=== PATIENT | female | born 1940 ===

== ENCOUNTER 2022-06-14 14:38 | Inpatient (IN) | payer OTHER ==
[2022-06-17 10:08] VITALS: BMI 32.8
[2022-06-17] MEDS ORDERED: FEXOFENADINE 180 MG TAB PO PRN (11:01)
[2022-06-17] MEDS ORDERED: MONTELUKAST 10 MG TAB PO PRN (11:04)
[2022-06-17] MEDS ORDERED: TRAMADOL 37.5mg/APAP 325mg PER TAB PO PRN (11:12)
[2022-06-17] MEDS: CODEINE 30MG/APAP 300MG TAB PO PRN ×2 (13:52→20:22)
[2022-06-17] MEDS: LIDOCAINE 4% PATCH TOP SCH (13:53)
[2022-06-17] MEDS: glipiZIDE 5 MG TAB PO SCH (16:40)
--- NOTE | 2022-06-17 17:07 | RAD REPORT ---
EXAM DESCRIPTION: RAD - Elbow Right 2 View - 06/17/2022 4:29 pm CLINICAL HISTORY: Elbow pain FINDINGS: Limited two view series obtained. Splint immobilizes the elbow. Humeral supracondylar fracture is present. Mild displacement of fracture fragments. Presumably it is subacute. No gross dislocation
[2022-06-17] MEDS ORDERED: DOCUSATE NA/SENNA CONC 1 TAB PO SCH (20:00)
[2022-06-17] MEDS: ATORVASTATIN 40 MG TAB PO SCH (20:22)
[2022-06-17] MEDS: GABAPENTIN 300 MG CAP PO SCH (20:22)
[2022-06-17] MEDS: NYSTATIN PWDR 100000 UNIT/GM TOP SCH (20:22)
[2022-06-17] MEDS: APIXABAN 2.5 MG TABLET PO SCH (20:22)
[2022-06-17] MEDS ORDERED: D50W 25 GM/50 ML SYRINGE IV PRN (20:31)
[2022-06-17] MEDS ORDERED: GLUCAGON 1 MG/VIAL IM PRN (20:31)
[2022-06-17] MEDS ORDERED: D10W 125 ML IV PRN (20:36)
[2022-06-17] MEDS: INSULIN -REGULAR HUMAN 50 UNIT/0.5 ML ML SQ SCH (21:00)
--- NOTE | 2022-06-17 23:48 | HP ---
Date of Admission: 06/17/2022 Time Of Service: 1:15 p.m. Chief Complaint: "My arm and back hurts." History Of Present Illness: Ms. Hernandez is an 82-year-old right-handed patient with multiple medical problems including hypertension, osteoarthritis, diabetes mellitus, diabetic peripheral neur opathy, chronic kidney disease, and hypothyroidism who comes in with the right elbow fracture, back p ain, and toxic metabolic encephalopathy. She fell on 06/05/2022 while at home and was taken to [facility] where she was found to have a right elbow fracture by x-ray. She was treated me dically and discharged home. However, on 06/10/2022, she was found in the recliner confused at home and was brought back to the hospital. Workup showed hypoglycemia and hyponatremia and chest x-ray sh owed cardiomegaly with bilateral effusions. Her carbon dioxide was 25. Sugars elevated to 172, crea tinine elevated to 1.92, hemoglobin slightly low at 10.1. She was diagnosed with toxic metabolic enc ephalopathy. She had hydrocortisone on board for her pain and possibly was a contributing factor. H owever, she did not resolve the encephalopathy and became significantly weak over several days. It s hould be noted that although there is a report of Orthopedic consultation when the nurse received the report, it was reported that the patient should be seen by Orthopedic Service while at inpatient [facility]. In any event, the patient was put in a splint and then sent over after she was evaluated by PT a nd OT and determined that she requires significant help for basic activities such as activities of da rubi living, transferring, ambulating, and performing cognitive functioning. She is now admitted to [facility] inpatient rehabilitation unit for physical, occupational, and speech therapy. She also will requi re aggressive management of her multiple medical problems, and again orthopedic followup and evaluati on. Past Medical History: As noted above. Past Surgical History: Hysterectomy, tonsillectomy, and appendectomy. Allergies: NO KNOWN DRUG ALLERGIES. X-ray/imaging: X-ray of the elbow 06/05/2022 showed suspected acute supracondylar humeral fracture. X-ray of the right knee on 06/05 showed no acute fracture. There is chondrocalcinosis. Portable est x-ray on 06/10/2022 shows cardiomegaly with mild central congestion along with bibasilar subsegme ntal atelectasis and small effusions. Head CT on 06/10/2022 shows moderate atrophy of deep white mat ter due to chronic small vessel ischemic disease. Otherwise, no acute abnormalities. Medications: Tylenol 3 every 6 hours as needed; allopurinol 100 mg daily; Eliquis 2.5 mg twice daily ; aspirin 81 mg daily; Lipitor 40 mg at bedtime; Rocaltrol 0.25 mcg on Wednesday, Wednesday, Wednesday; vit cifuentes D 1000 units daily; Sun 180 mg twice daily; Lasix 40 mg daily; gabapentin 300 mg twice daily ; Glucotrol 10 mg twice daily; Synthroid 0.1 mg daily; lidocaine patch now applied 1 to the back and 1 to right arm daily; Prinivil 30 mg daily; Singulair 10 mg at bedtime; Mycostatin powder apply topic ally twice daily; Senokot-S 2 at bedtime; sodium chloride tablet 1 g daily; and Ultram 50 mg every 6 hours as needed. Family History: Noncontributory. Laboratory Studies: Her blood sugars ranged from 189 to 221. White blood cell count 7.2, hemoglobin 10.4, hematocrit 31.2, and platelets 281. Sodium 133, potassium 4.7, BUN 63, creatinine 1.92, calci um 8.2, and albumin 2.6. Social History: The patient lives alone on her daughter's property and at baseline did not have cogn itive difficulties. Review of Systems: The patient reports some pain in the back and between shoulder blades and the pain in the right elbow where she has a fracture. Her arm is in a sling. Physical Examination: HEENT: She is otherwise atraumatic, normocephalic. Sclerae anicteric. Oropharynx pink and moist. Neck: Supple. Chest: Decreased breath sounds. Abdomen: Soft. Extremities: No significant edema, cyanosis, or clubbing. Neurologic: The right arm is in a sling and cannot fully assess strength. On the left side, no weak ness there and bilaterally in the lower extremities, no significant focal weakness. Stocking-glove l oss to light touch and temperature in the extremities. Reflexes are symmetric in the lower extremiti es. Current Functional Status: Today she ambulated 5 feet with moderate assistance using a quad cane. S he did have poor truncal stability. She did participate in gait training with parallel bars with emp hasis on step lengths. Sit to stand done with moderate assistance. Qemmrh-os-gpe transfers with min imum assistance. She was evaluated by Speech Therapy. She actually scored a 10 on the BIMS and 15 o n the SLUMS. She did have areas of deficits including short-term memory, working memory, organizatio nal thinking, sustained attention, visual spatial concepts, and 4 paragraphs recall. With her occupa tional therapy, she did attempt to self propel the wheelchair and she covered 10 feet, but then had s ignificant pain. Rehabilitation And Medical Assessment And Plan: Her rehabilitation impairment group category is 03, brain dysfunction, nontraumatic. Rehabilitation impairment group code is 02.1, nontraumatic. Her et iologic diagnosis is toxic metabolic encephalopathy. Active comorbids are anemia, cardiomegaly, teaching music lessons kristi kidney disease, encephalopathy, constipation, decreased mobility, decrease in physical functionin g, diabetic neuropathy, diabetes mellitus, lower extremity edema, dyslipidemia, hypertension, hyponat remia, hypothyroidism, and hypokalemia. Plan: 1.She will have physical, occupational, and speech therapy 3.5 hours, 5 of 7 days. 2.For constipation, Senokot-S 2 at night. 3.For pain, Ultram 50 mg every 6 hours as needed. 4.For hypertension, Prinivil 30 mg daily. 5.Fluid management will be done by Lasix 40 mg daily. 6.Gabapentin 300 mg daily for neuropathic pain and pain related to her right elbow fracture. 7.For diabetes mellitus, Glucotrol 10 mg twice daily and blood sugars will be checked a.c. and at be dtime. 8.For hypothyroidism, Synthroid 0.1 mg daily. 9.She will continue aspirin 81 mg daily and Eliquis 2.5 mg daily for stroke and DVT risk reduction. 10.Lipitor 40 mg at bedtime for dyslipidemia. Impact Of Comorbids: 1.She does have the encephalopathy, which is toxic metabolic and we will of course have Speech Thera py working with her. Electrolytes will be followed appropriately and if need be, a CT scan of the he ad and EEG will be ordered. 2.Her right elbow is in a sling and Orthopedic evaluation was reportedly not done. The Orthopedic S edwardo was consulted, Dr. Chandra. He will see the patient tomorrow and make a determination if surgery is required, although he says he does not perform those surgeries and if need be, the patient will b e transferred out of rehab for that. However, for now, the patient will be kept in a sling as she do es her rehabilitation. Rehab Specific Plan: As noted, she will have physical, occupational, and speech therapy 3.5 hours, 5 of 7 days and the goal will be to improve her ability to transfer to where she was previously, which is independently from bed, to chair, to shower, toilet, and to ambulate 250 feet with modified indep endence, up and down 10 steps with modified independence, and also perform cognitive functioning with independence. She has a good understanding of the admission and discharge process to the inpatient rehabilitation u [facility]. She has a potential to make good improvement in physical, occupational, and speech therapy disc iplines with significant work, which she is committed to doing. In addition, the Orthopedic Service is consulted. She will have Pulmonary Service, Cardiovascular Service, and Nutrition Services along with Wound Care as needed. Given the complex medical condition and risk of further complications, re habilitation cannot be safely or effectively provided at a lower level facility such as [facility]. Barriers To Discharge: She has the right elbow fracture and has electrolyte abnormalities and some e ncephalopathy, but again those are being aggressively treated while she is in inpatient rehabilitatio n. Estimated Length Of Stay: About 12 days. Disposition: Home. Prognosis: Despite multiple conditions, is good. Rehabilitation Goals: 1.Become independent with upper and lower body dressing, transferring, toileting, and showering. 2.Ambulate 250 feet independently. 3.Up and down 10 steps independently. 4.Perform cognitive functioning independently. 5.Have all of her medical needs addressed adequately by fdc and physician visits on a da rubi basis. I acknowledge I personally performed a full physical examination on patient Loren Hernandez, no later than 24 hours after admission to the inpatient rehabilitation unit and determined that she is able to rodriguez erate the above course of treatment at an intensive level for a reasonable period of time. Rosa domingo individualized plan of care for her will be completed by hospital day 4 based on the preadmission s creen, admission history and physical, and therapy evaluations. ROMINA/SYLVIE Voice ID: [id number]
[2022-06-18 04:33] LABS: Absolute Lymphocytes (CBC) 2.1 K/uL (0.7-4.9); Hematocrit 30.5 % (36.0-45.0); Lymphocytes % 27.3 % (15.3-44.8); MCV 91.8 fL (80-100); MPV 7.8 fL (7.6-11.3); RBC Red Blood Cell Count 3.32 M/uL (3.86-4.86)
[2022-06-18 04:53] LABS: Albumin 2.7 g/dL (3.4-5.0); Magnesium 2.3 mg/dL (1.6-2.4); Potassium 4.8 mEq/L (3.5-5.1); Prealbumin 12.6 mg/dL (20-40)
[2022-06-18] MEDS: LEVOTHYROXINE SOD 0.1 MG TAB PO SCH (05:26)
[2022-06-18] MEDS: glipiZIDE 5 MG TAB PO SCH ×2 (07:15→17:06)
[2022-06-18] MEDS: INSULIN -REGULAR HUMAN 50 UNIT/0.5 ML ML SQ SCH ×4 (07:15→20:02)
[2022-06-18] MEDS ORDERED: lisinopriL 10 MG TAB PO SCH ×2 (08:00→10:08)
[2022-06-18] MEDS: LIDOCAINE 4% PATCH TOP SCH (08:32)
[2022-06-18] MEDS: APIXABAN 2.5 MG TABLET PO SCH ×2 (08:33→19:34)
[2022-06-18] MEDS: ASPIRIN EC 81 MG TAB PO SCH (08:33)
[2022-06-18] MEDS: VITAMIN D 1000 UNIT TAB PO SCH (08:33)
[2022-06-18] MEDS: GABAPENTIN 300 MG CAP PO SCH ×2 (08:35→19:34)
[2022-06-18] MEDS: TRAMADOL HCL 50 MG TAB PO PRN (08:35)
[2022-06-18] MEDS: allopurinoL 100 MG TAB PO SCH (08:35)
[2022-06-18] MEDS: SODIUM CHLORIDE 1 GM TAB PO SCH (08:35)
[2022-06-18] MEDS: FUROSEMIDE 40 MG TABLET PO SCH (08:36)
[2022-06-18] MEDS: NYSTATIN PWDR 100000 UNIT/GM TOP SCH ×2 (08:37→19:34)
[2022-06-18 10:29] LABS: Specific Gravity 1.015 (1.005-1.030); Urine Bilirubin ND (Negative); Urine Blood Negative (Negative); Urine Clarity Clear (Clear); Urine Color Yellow (Yellow); Urine Glucose Negative (Negative); Urine Protein Negative (Negative); Urine Urobilinogen 0.2 mg/dL (0.2-1.0); Urine pH 5.5 (5.0-7.0)
[2022-06-18 10:38] LABS: Transitional Epithelial <5 /HPF (None Seen); Urine Bacteria <20 /HPF (<20); Urine RBC <5 /HPF (None Seen)
[2022-06-18] MEDS: lisinopriL 5 MG TAB PO SCH (19:34)
[2022-06-18] MEDS: ATORVASTATIN 40 MG TAB PO SCH (19:34)
--- NOTE | 2022-06-18 20:06 | PN ---
Date of Progress Note: 06/18/2022 Time Of Service: 1 p.m. Subjective: Ms. Hernandez reports the pain in her back is much better. She still has some pain in the r ight elbow where there is a fracture and that is medicated by pain medications. Otherwise, on subjec tive, no generalized other problems. There was diffuse myalgias, but no rash. No active psychiatric issues. No gastrointestinal issues. Review of Systems: No fevers or chills. Again pain in the right arm that is held in a sling from the fracture of the el bow. Otherwise, no genitourinary or gastrointestinal complaints. She does have chronic back pain, a nd no psychiatric complaints. Physical Examination: Vital Signs: Blood pressure 118/56, pulse of 70, respiratory rate 16, temperature is 97.6. Oxygen s aturation 95%. General: Ms. Hernandez is sitting in a chair with speech pathologist in front. She is in no significant distress. She is working well with Speech Pathology. Right arm is in a sling. She is not exerting much force there because of the pain at the right elbow. She is moving legs equally, although there is some diffuse weakness in the lower extremities. Laboratory Studies: White blood cell count 7.8, hemoglobin 10.3, platelets 292. Chemistry: Sodium 135, potassium 4.8, chloride 106, carbon dioxide 27, BUN 46, creatinine 1.93. Glucose ranged from 81 to 177. Prealbumin 12.3, albumin 2.7. Urinalysis is essentially unremarkable except 2+ esterase. X-ray Imaging: The x-ray of her right elbow, 2 views, did show a humeral supracondyle fracture with mild displacement of fracture fragments, presumed to be subacute as the splint immobilizing the elbow . Consultation: The patient was seen by Dr. Steve Chandra in the Orthopedic Service. He did say that t hat fragment does appear to require surgery. However, he does not perform that surgery at this [facility] and actually no other hospital. He did recommend that she go to [place] to have that surgery don e. This actually was discussed with the patient's daughter and they will make a decision regarding g oing to [place] to have surgery on the elbow. If that is decided, patient will be discharged from in patient rehab to have surgery. Otherwise, patient will continue with inpatient rehab and after disch arge, will then seek surgical care in [place]. Medications: Tylenol 3 one every 6 hours as needed. Allopurinol 100 mg daily. Eliquis 2.5 mg twice daily. Aspirin 81 mg daily. Lipitor 40 mg at bedtime. Rocaltrol Wednesday, Wednesday, Wed day. Vitamin D 1000 units daily. Sun 180 mg twice daily. Lasix 40 mg daily. Gabapentin 300 mg twice daily. Glucotrol 5 mg twice daily. Synthroid 0.1 mg daily. Prinivil 15 mg twice daily. Sin gulair 10 mg at bedtime. Senokot S 2 at bedtime. Sodium chloride 1 g daily. Ultram 50 mg every 6 h ours as needed. Current Functional Status: Today she did ambulate 12 feet, 30 feet, 33 feet and 25 feet with moderat e assistance using a quad cane. She did perform stand pivot transfers with minimum to moderate debo tance, transfers from wheelchair to straight back chair also done with moderate assistance. With Spe ech Pathology, therapist did provide teaching on the use of internal memory strategies for recall of short term and patient did use verbal rehearsal and visualization to recall 1 of 3 pictures with cued recall and 2 of 3 pictures with recognition recall. Progress Towards Rehabilitation Goals: Ms. Hernandez is beginning to make some progress towards her reha bilitation goals. She was just admitted to the unit now and this is day 2 and beginning to ambulate, working fairly well with Speech Pathology to improve her comprehension, following instructions and c leared some of her encephalopathy. Assessment And Plan: Ms. Hernandez is an 82-year-old patient admitted to the inpatient rehabilitation un it with toxic metabolic encephalopathy. She has a fall with a right elbow fracture as detailed above . She has chronic kidney disease, constipation, diabetes with diabetic neuropathy, hypothyroidism, m alnutrition, dyslipidemia, hypertension. Plan: 1.Continue with physical, occupational, and speech therapy 3.5 hours, 5 of 7 days. 2.Continue with Prinivil for hypertension, gabapentin for neuropathic pain, Lasix for volume managem ent, Ultram and Tylenol 3 for pain. Continue Glucotrol for diabetes mellitus. Continue Synthroid fo r hypothyroidism, allopurinol for gout. Comorbids That Are Continuing To Impact The Rehabilitation Process: She does have a fracture in the right elbow with the right arm in a sling. Orthopedic Surgery suggests surgery is likely to be requi red, but that is not done at this hospital. The patient and her daughter are determining whether or not they will go to [place] to have surgery and if that is the case, she will be discharged to [facility]. If not, continue with inpatient rehab and then pursue surgery after discharge. ROIMNA/SYLVIE Voice ID: [id number] Report ID: [id number]
[2022-06-19] MEDS: LEVOTHYROXINE SOD 0.1 MG TAB PO SCH (06:13)
[2022-06-19] MEDS: INSULIN -REGULAR HUMAN 50 UNIT/0.5 ML ML SQ SCH ×4 (06:40→20:00)
[2022-06-19] MEDS: TRAMADOL HCL 50 MG TAB PO PRN (06:56)
[2022-06-19] MEDS: lisinopriL 5 MG TAB PO SCH (08:00)
[2022-06-19] MEDS: FUROSEMIDE 40 MG TABLET PO SCH (08:00)
[2022-06-19] MEDS ORDERED: CALCITROL 0.25 MCG CAP PO SCH (08:00)
[2022-06-19] MEDS: LIDOCAINE 4% PATCH TOP SCH (08:06)
[2022-06-19] MEDS: APIXABAN 2.5 MG TABLET PO SCH ×2 (08:07→19:49)
[2022-06-19] MEDS: CALCITROL 0.25 MCG CAP PO SCH (08:07)
[2022-06-19] MEDS: VITAMIN D 1000 UNIT TAB PO SCH (08:07)
[2022-06-19] MEDS: NYSTATIN PWDR 100000 UNIT/GM TOP SCH ×2 (08:07→19:49)
[2022-06-19] MEDS: GABAPENTIN 300 MG CAP PO SCH ×2 (08:07→19:49)
[2022-06-19] MEDS: ASPIRIN EC 81 MG TAB PO SCH (08:07)
[2022-06-19] MEDS: SODIUM CHLORIDE 1 GM TAB PO SCH (08:07)
[2022-06-19] MEDS: glipiZIDE 5 MG TAB PO SCH ×2 (08:08→17:11)
[2022-06-19] MEDS: allopurinoL 100 MG TAB PO SCH (08:08)
--- NOTE | 2022-06-19 08:17 | P.RH.PN ---
Estimated Length of Stay: 14 Expected Discharge Date: 06/30/22 Discharge Disposition Plan: Home Family Support: Yes Shelter Goal: Mobility, Transfers, Self Care Vital Signs: Last Vital Signs Temp 97.3 F 06/19/22 06:55 Pulse 59 06/19/22 06:55 Resp 18 06/19/22 06:56 BP 102/42 L 06/19/22 06:55 Pulse Ox 97 06/19/22 06:56 Laboratory: Laboratory Last Values WBC 7.80 thou/uL (4.3-10.9) 06/18/22 04:10 RBC 3.32 M/uL (3.86-4.86) L 06/18/22 04:10 Hgb 10.3 g/dL (12.0-15.0) L 06/18/22 04:10 Hct 30.5 % (36.0-45.0) L 06/18/22 04:10 MCV 91.8 fL (80-100) 06/18/22 04:10 MCH 31.0 pg (27.0-35.0) 06/18/22 04:10 MCHC 33.8 g/dL (32.0-36.0) 06/18/22 04:10 RDW 13.9 % (12.1-15.2) 06/18/22 04:10 Plt Count 292 thou/uL (152-406) 06/18/22 04:10 MPV 7.8 fL (7.6-11.3) 06/18/22 04:10 Neutrophils % 56.9 % (41.7-73.7) 06/18/22 04:10 Lymphocytes % 27.3 % (15.3-44.8) 06/18/22 04:10 Monocytes % 12.6 % (3.3-12.3) H 06/18/22 04:10 Eosinophils % 2.9 % (0-4.4) 06/18/22 04:10 Basophils % 0.3 % (0-1.3) 06/18/22 04:10 Absolute Neutrophils 4.4 K/uL (1.8-8.0) 06/18/22 04:10 Absolute Lymphocytes 2.1 K/uL (0.7-4.9) 06/18/22 04:10 Absolute Monocytes 1.0 K/uL (0.1-1.3) 06/18/22 04:10 Absolute Eosinophils 0.2 K/uL (0-0.5) 06/18/22 04:10 Absolute Basophils 0.0 K/uL (0-0.5) 06/18/22 04:10 Sodium 135 mEq/L (136-145) L 06/18/22 04:10 Potassium 4.8 mEq/L (3.5-5.1) 06/18/22 04:10 Chloride 106 mEq/L (98-107) 06/18/22 04:10 Carbon Dioxide 27 mEq/L (21-32) 06/18/22 04:10 Anion Gap 6.8 mEq/L (5.0-15.0) 06/18/22 04:10 BUN 46 mg/dL (7-18) H 06/18/22 04:10 Creatinine 1.93 mg/dL (0.55-1.02) H 06/18/22 04:10 Est GFR (CKD-EPI) 25 ml/min (=/>90) L 06/18/22 04:10 Glucose 70 mg/dL (74-106) L 06/18/22 04:10 POC Glucose 96 mg/dL (65-120) 06/19/22 06:38 Calcium 9.6 mg/dL (8.5-10.1) 06/18/22 04:10 Magnesium 2.3 mg/dL (1.6-2.4) 06/18/22 04:10 Albumin 2.7 g/dL (3.4-5.0) L 06/18/22 04:10 Prealbumin 12.6 mg/dL (20-40) L 06/18/22 04:10 Urine Color Yellow (Yellow) 06/18/22 09:25 Urine Clarity Clear (Clear) 06/18/22 09:25 Urine pH 5.5 (5.0-7.0) 06/18/22 09:25 Ur Specific [place] 1.015 (1.005-1.030) 06/18/22 09:25 Glucose (UA)(Auto) Negative (Negative) 06/18/22 09:25 Urine Ketones Negative (Negative) 06/18/22 09:25 Urine Blood Negative (Negative) 06/18/22 09:25 Urine Nitrite Negative (Negative) 06/18/22 09:25 Urine Bilirubin ND 06/18/22 09:25 Urine Urobilinogen 0.2 mg/dL (0.2-1.0) 06/18/22 09:25 Ur Leukocyte Esterase 2+ (Negative) H 06/18/22 09:25 Urine RBC <5 /HPF (None Seen) 06/18/22 09:25 Urine WBC 5-10 /HPF (<5) 06/18/22 09:25 Ur Squamous Epith Cells 5-10 /HPF (None Seen) 06/18/22 09:25 Ur Transition Epith Cell <5 /HPF (None Seen) 06/18/22 09:25 Urine Bacteria <20 /HPF (<20) 06/18/22 09:25 Urine Culture Reflexed Not needed 06/18/22 09:25 Urine Total Protein Negative (Negative) 06/18/22 09:25 Weight: 179 lb 3.2 oz Wound Present: No Physician Update: Glucerna due to low prealbumin. Moderate pain in the right elbow fracture. She may require surgery for the arm. Will speak with Dr. Chandra. She is at mod assistance with a quad cane. Mod assistance with cognitive functioning. Doing better with ADLs but still mod to max assistance overall. Summary: Patient's care plan and termite inspector goals have been reviewed and revised as necessary. Please see the Rehabilitation Signature page for all necessary signatures.
[2022-06-19] MEDS ORDERED: NA CHLORIDE 0.9% 1,000 ML IV SCH (12:00)
[2022-06-19] MEDS: ATORVASTATIN 40 MG TAB PO SCH (19:49)
[2022-06-19] MEDS: lisinopriL 10 MG TAB PO SCH ×2 (19:49→20:00)
[2022-06-19] MEDS: GLUCERNA SHAKE 237 ML CAN PO SCH (19:50)
[2022-06-20] MEDS: LEVOTHYROXINE SOD 0.1 MG TAB PO SCH (06:38)
[2022-06-20] MEDS: lisinopriL 10 MG TAB PO SCH ×2 (07:11→19:46)
[2022-06-20] MEDS: FUROSEMIDE 20 MG TABLET PO SCH (07:12)
[2022-06-20] MEDS: INSULIN -REGULAR HUMAN 50 UNIT/0.5 ML ML SQ SCH ×4 (07:30→20:04)
[2022-06-20] MEDS: glipiZIDE 5 MG TAB PO SCH ×2 (07:30→16:15)
[2022-06-20] MEDS: LIDOCAINE 4% PATCH TOP SCH (07:49)
[2022-06-20] MEDS: SODIUM CHLORIDE 1 GM TAB PO SCH (07:50)
[2022-06-20] MEDS: ACETAMINOPHEN 500 MG TAB PO PRN (07:50)
[2022-06-20] MEDS: ASPIRIN EC 81 MG TAB PO SCH (07:50)
[2022-06-20] MEDS: GABAPENTIN 300 MG CAP PO SCH ×2 (07:50→19:45)
[2022-06-20] MEDS: VITAMIN D 1000 UNIT TAB PO SCH (07:50)
[2022-06-20] MEDS: allopurinoL 100 MG TAB PO SCH (07:50)
[2022-06-20] MEDS: APIXABAN 2.5 MG TABLET PO SCH ×2 (07:51→19:45)
[2022-06-20] MEDS: NYSTATIN PWDR 100000 UNIT/GM TOP SCH ×2 (11:04→19:46)
[2022-06-20] MEDS: GLUCERNA SHAKE 237 ML CAN PO SCH ×2 (11:04→19:46)
[2022-06-20] MEDS: TRAMADOL HCL 50 MG TAB PO PRN (13:30)
--- NOTE | 2022-06-20 14:22 | CON ---
Date of Consultation: 06/18/2022 Reason For Consultation: Right elbow pain. History Of Present Illness: Ms. Hernandez is an 82-year-old female who was admitted to the rehab service after sustaining a fall with difficulty mobilizing. She has history of a fall approximately 2 weeks ago and sustained an injury to her right elbow. She was seen at another hospital and placed in a po sterior splint. X-rays demonstrated a displaced supracondylar distal humerus fracture of the right u pper extremity. She had not had orthopedic followup until this time. The patient reports pain at th e right elbow. She has been in a sling and nonweightbearing. She was also noted to have a prior adm ission diagnosis of toxic metabolic encephalopathy. She denies any other musculoskeletal complaints at this time. Review of Systems: As above, otherwise negative. Past Medical History: Diabetes, hypertension, chronic kidney disease, hypothyroidism. Past Surgical History: Includes hysterectomy, tonsillectomy, appendectomy. Medications: Per medication reconciliation. Allergies: NO KNOWN DRUG ALLERGIES. Family History: Reviewed and noncontributory. Social History: The patient lives alone with her daughter. Physical Examination: General: No apparent distress. HEENT: Normocephalic, atraumatic. Neck: Supple. Cardiovascular: Brisk cap refill to all digits. Chest: Nonlabored breathing. Abdomen: Nondistended. Psychiatric: Responds to exam. Musculoskeletal: Right upper extremity, the patient is in a long posterior splint to the right upper extremity. She has positive firing of EPL FPL and intrinsics. Sensation grossly intact to light touch in the radial, median, ulnar nerve distributions. Diagnostic Studies: X-rays of the right elbow demonstrate a transverse supracondylar distal humerus fracture with displacement and some extension at the fracture site. Some mild translation. Assessment And Plan: Ms. Hernandez is an 82-year-old female with a right displaced distal humerus fractu re. Discussed with the patient at length the diagnosis as well as treatment plan. Given the displac ed nature of the fracture, I did recommend operative treatment. Given her multiple medical comorbidi ties, I did express to the patient there may be some elevated perioperative risk and she expressed un derstanding. After discussion with her, she will discuss further with her daughter to discuss if she would like to proceed with operative treatment. I discussed with the patient that if we proceed wit h nonoperative treatment that there would be a high risk for nonunion or stiffness. She expressed un derstanding. She will remain nonweightbearing at this time. She will be discussed further with her family and informed nursing with her decision whether to proceed with operative or nonoperative treat ments. I discussed with the patient that if she did proceed with surgical treatment that it would re quire higher level of care this procedure and admitting team would help the patient for fu rther followup. AJ/SYLVIE Voice ID: [id number] Report ID: [id number]
[2022-06-20] MEDS: ATORVASTATIN 40 MG TAB PO SCH (19:46)
[2022-06-20] MEDS: CODEINE 30MG/APAP 300MG TAB PO PRN (21:36)
[2022-06-21] MEDS: CODEINE 30MG/APAP 300MG TAB PO PRN (05:30)
[2022-06-21] MEDS: LEVOTHYROXINE SOD 0.1 MG TAB PO SCH (06:24)
[2022-06-21 06:27] LABS: Absolute Lymphocytes (CBC) 1.5 K/uL (0.7-4.9); Hematocrit 28.6 % (36.0-45.0); MCV 92.5 fL (80-100); MPV 8.4 fL (7.6-11.3)
[2022-06-21 06:46] LABS: Potassium 5.1 mEq/L (3.5-5.1)
[2022-06-21] MEDS: INSULIN -REGULAR HUMAN 50 UNIT/0.5 ML ML SQ SCH ×4 (07:30→20:02)
[2022-06-21] MEDS: glipiZIDE 5 MG TAB PO SCH ×2 (07:41→15:51)
[2022-06-21] MEDS: LIDOCAINE 4% PATCH TOP SCH (07:56)
[2022-06-21] MEDS: VITAMIN D 1000 UNIT TAB PO SCH (07:59)
[2022-06-21] MEDS: ASPIRIN EC 81 MG TAB PO SCH (07:59)
[2022-06-21] MEDS: allopurinoL 100 MG TAB PO SCH (07:59)
[2022-06-21] MEDS: APIXABAN 2.5 MG TABLET PO SCH ×2 (07:59→19:32)
[2022-06-21] MEDS: SODIUM CHLORIDE 1 GM TAB PO SCH (07:59)
[2022-06-21] MEDS: lisinopriL 10 MG TAB PO SCH ×2 (08:00→19:34)
[2022-06-21] MEDS: NYSTATIN PWDR 100000 UNIT/GM TOP SCH ×2 (08:00→19:32)
[2022-06-21] MEDS: GABAPENTIN 300 MG CAP PO SCH ×2 (08:00→19:32)
[2022-06-21] MEDS: FUROSEMIDE 20 MG TABLET PO SCH (08:00)
[2022-06-21] MEDS: GLUCERNA SHAKE 237 ML CAN PO SCH ×2 (08:00→19:32)
[2022-06-21] MEDS: FERROUS SULFATE 325 MG TAB PO SCH (09:15)
[2022-06-21] MEDS: FE SULF/FA/VIT B COMP & C TAB PO SCH (09:16)
[2022-06-21] MEDS: TRAMADOL HCL 50 MG TAB PO PRN (15:48)
[2022-06-21] MEDS: ATORVASTATIN 40 MG TAB PO SCH (19:32)
[2022-06-21] MEDS: CIPROFLOXACIN HCL 500 MG TAB PO SCH (19:33)
[2022-06-21] MEDS: DOCUSATE NA/SENNA CONC 1 TAB PO PRN (20:17)
[2022-06-22] MEDS: LEVOTHYROXINE SOD 0.1 MG TAB PO SCH (06:22)
[2022-06-22] MEDS: glipiZIDE 5 MG TAB PO SCH ×2 (07:16→16:30)
[2022-06-22] MEDS: FUROSEMIDE 20 MG TABLET PO SCH (07:16)
[2022-06-22] MEDS: APIXABAN 2.5 MG TABLET PO SCH ×2 (07:17→20:29)
[2022-06-22] MEDS: FE SULF/FA/VIT B COMP & C TAB PO SCH (07:17)
[2022-06-22] MEDS: VITAMIN D 1000 UNIT TAB PO SCH (07:17)
[2022-06-22] MEDS: CIPROFLOXACIN HCL 500 MG TAB PO SCH ×2 (07:17→20:29)
[2022-06-22] MEDS: FERROUS SULFATE 325 MG TAB PO SCH (07:17)
[2022-06-22] MEDS: GABAPENTIN 300 MG CAP PO SCH (07:17)
[2022-06-22] MEDS: ASPIRIN EC 81 MG TAB PO SCH (07:17)
[2022-06-22] MEDS: allopurinoL 100 MG TAB PO SCH (07:17)
[2022-06-22] MEDS: CALCITROL 0.25 MCG CAP PO SCH (07:18)
[2022-06-22] MEDS: SODIUM CHLORIDE 1 GM TAB PO SCH (07:18)
[2022-06-22] MEDS: GLUCERNA SHAKE 237 ML CAN PO SCH ×2 (07:19→20:30)
[2022-06-22] MEDS: INSULIN -REGULAR HUMAN 50 UNIT/0.5 ML ML SQ SCH ×4 (07:30→20:31)
[2022-06-22] MEDS: TRAMADOL HCL 50 MG TAB PO PRN ×3 (07:36→20:29)
[2022-06-22] MEDS: lisinopriL 10 MG TAB PO SCH ×2 (08:00→20:30)
--- NOTE | 2022-06-22 08:55 | P.PN ---
Subjective Date of Service: 06/19/22 Chief Complaint: right elbow pain Subjective: Working w/ PT reports continued pain with right elbow Physical Examination - Vital Signs Temperature: 97.3 F Blood Pressure: 109/56 Pulse: 62 Respirations: 17 Pulse Ox (%): 92 - Physical Exam General: Alert, In no apparent distress Musculoskeletal: Other (RUE: long posterior splint in place; +EPL/FPL/intrinsics; sensation grossly intact in radial/median/ulnar nerve distributation) - Studies Microbiology Data (last 24 hrs): 06/18/22 09:25 Clean Catch Urine [place] Count - Final BETWEEN 10,000 & 100,000 CFU/ML 06/18/22 09:25 Clean Catch Urine - Final Escherichia Coli Assessment And Plan - Plan Loren is an 82-year-old female with a right supracondylar distal humerus fracture -I discussed the patient at length her diagnosis as well as treatment plan. We discussed both operative and nonoperative treatment. We discussed risks with operative and nonoperative treatment including nonunion and continued pain. Patient is discussed with her daughter would like to proceed with operative treatment. I recommend follow-up in the next couple of days with an orthopaedic elbow/trauma specialist as the patient is already 2 weeks out from her initial injury. She may follow-up in my clinic as needed.
[2022-06-22] MEDS: LIDOCAINE 4% PATCH TOP SCH (10:58)
[2022-06-22] MEDS: NYSTATIN PWDR 100000 UNIT/GM TOP SCH ×2 (10:59→20:30)
[2022-06-22] MEDS ORDERED: POLYETHYL GLY 3350 17 GM/DOSE PO PRN (11:01)
[2022-06-22] MEDS: GABAPENTIN 400 MG CAP PO SCH (20:29)
[2022-06-22] MEDS: DOCUSATE NA/SENNA CONC 1 TAB PO PRN (20:29)
[2022-06-22] MEDS: ATORVASTATIN 40 MG TAB PO SCH (20:29)
--- NOTE | 2022-06-22 20:29 | PN ---
Date of Service: 06/22/22 Time of Service: 1:00 PM [facility] Progress Note Visit Subjective: Ms. Hernandez is resting comfortably in her room. She does have the right arm in a sling where there is a displaced fracture in supracondylar humerus in the right upper extremity. She was seen by Dr. Chandra on the Orthopedic Service. His assessment and plan was that since the fracture was displaced, he recommended operative treatment and the patient and her daughter decided that they will seek that in [place] and actually tomorrow, they have a day pass to go to [place] to be evaluated by one of the orthopedic surgeons selected by Dr. Chandra and the patient and her daughter together. Otherwise, her back is improving in terms of pain with pain patch. Review of Systems: No fevers or chills. There are some myalgias and arthralgias as noted. No rash. No headache. No weight change. No psychiatric complaints. No active genitourinary or gastrointestinal issues. Physical Examination: Vital Signs: Blood pressure 109/56, pulse 62, respiratory rate 16, temperature 97.3, and oxygen saturation 94%. General: Ms. Hernandez is in chair, in between sessions. Her daughter is in the room. HEENT: She is normocephalic, atraumatic. Sclerae anicteric. Oropharynx pink and moist. Extremities: Right arm is in a sling where there is the fracture as noted. Lower extremities show mild edema, but no significant abnormalities otherwise. Neurologic: She does have diffuse weakness in upper and lower extremities and slight slowness in response, but is improving very well. Laboratory Studies: Yesterday, white blood cell count 6.1, hemoglobin 9.5, and platelets 264. Blood glucose ranged from 80 to 123. X-ray/imaging: No new x-ray or imaging. Medications: Her medications have been reviewed and remained unchanged. Current Functional Status: Currently, she was able to ambulate 30 feet 4 times with contact guard assist using a left quad cane and she did fatigue quickly. She did nnsjys-iu-rwv transfer with minimum assistance and qwy-uj-lezwj transfer done with contact guard assistance. With speech therapy, she demonstrates sustained attention to a structured task for 3 minutes, but needed moderate cuing. 3 pieces of unrelated information were presented for recall. She recalled 0 of 3 at first attempt after 3 minutes; after 2 minutes, she recalled 1 of 3 and recalled 2 of 3 after an additional 3 minutes, but with cuing. Progress Towards Rehabilitation Goals: Ms. Hernandez is making slow progress towards her goals of becoming independent with upper and lower body dressing, transferring, toileting, and performing activities of daily living and ambulating with independence. She also is working to improve her cognitive functioning with independence. Assessment: Ms. Hernandez is an 82-year-old patient in the rehabilitation unit with toxic metabolic encephalopathy. She has a displaced fracture in the distal humerus that requires surgical intervention per Dr. Chandra on the Orthopedic Service. She has multiple comorbid conditions including diabetes, diabetic neuropathy, hypothyroidism, malnutrition, dyslipidemia, hypertension, chronic kidney disease, and constipation. Plan: 1. Continue with physical, occupational, and speech therapy 3.5 hours, 5 of 7 days. 2. She will continue with her medications as listed including gabapentin, Prinivil, Lasix, Ultram, Tylenol, Glucotrol, Synthroid, and allopurinol and these are for her comorbid conditions. 3. She will go to [place] in the morning to be evaluated for right elbow surgery. Comorbids That Continue To Impact The Rehabilitation Process: The most impactful comorbid is the fracture of the right elbow, which is in a sling and she has significant pain there. She is going to [place] in the morning for further evaluation and possible surgery. She was managed with multiple medications for her pain in the right elbow. ROMINA/SYLVIE Voice ID: [id number] Report ID: [id number] BAKARI
[2022-06-22] MEDS: MELATONIN 3 MG TABLET PO PRN (20:30)
[2022-06-23] MEDS: LEVOTHYROXINE SOD 0.1 MG TAB PO SCH (06:20)
[2022-06-23] MEDS: glipiZIDE 5 MG TAB PO SCH ×2 (07:25→16:30)
[2022-06-23] MEDS: FUROSEMIDE 20 MG TABLET PO SCH (07:26)
[2022-06-23] MEDS: LIDOCAINE 4% PATCH TOP SCH (07:26)
[2022-06-23] MEDS: ASPIRIN EC 81 MG TAB PO SCH (07:27)
[2022-06-23] MEDS: CIPROFLOXACIN HCL 500 MG TAB PO SCH ×2 (07:27→19:47)
[2022-06-23] MEDS: SODIUM CHLORIDE 1 GM TAB PO SCH (07:27)
[2022-06-23] MEDS: GABAPENTIN 400 MG CAP PO SCH ×2 (07:27→19:46)
[2022-06-23] MEDS: VITAMIN D 1000 UNIT TAB PO SCH (07:27)
[2022-06-23] MEDS: FE SULF/FA/VIT B COMP & C TAB PO SCH (07:27)
[2022-06-23] MEDS: NYSTATIN PWDR 100000 UNIT/GM TOP SCH ×2 (07:27→19:54)
[2022-06-23] MEDS: allopurinoL 100 MG TAB PO SCH (07:27)
[2022-06-23] MEDS: FERROUS SULFATE 325 MG TAB PO SCH (07:27)
[2022-06-23] MEDS: GLUCERNA SHAKE 237 ML CAN PO SCH ×2 (07:28→19:52)
[2022-06-23] MEDS: APIXABAN 2.5 MG TABLET PO SCH ×2 (07:28→19:46)
[2022-06-23] MEDS: INSULIN -REGULAR HUMAN 50 UNIT/0.5 ML ML SQ SCH ×4 (07:30→21:00)
[2022-06-23] MEDS: lisinopriL 10 MG TAB PO SCH ×2 (08:00→19:47)
[2022-06-23] MEDS: TRAMADOL HCL 50 MG TAB PO PRN ×4 (08:20→22:45)
[2022-06-23] MEDS: MELATONIN 3 MG TABLET PO PRN (19:46)
[2022-06-23] MEDS: ATORVASTATIN 40 MG TAB PO SCH (19:46)
--- NOTE | 2022-06-24 00:13 | PN ---
Date of Progress Note: 06/23/2022 The patient is actually out of the hospital visiting the physicians in [place] for her right elbow fr acture and physically was not evaluated today. It should be noted that her therapy could not be comp leted in terms of 3.5 hours today, because the patient did not return from early visit to [facility] later today. However, it should be noted that the patient was actually having additional therapy throughout the week with the knowledge that she would have today's visit with surgeons in [place]. S he did accumulate a total of 900 total minutes during the week and that did complete requirements for physical, occupational, and speech therapy. ROMINA/SYLVIE Voice ID: [id number] Report ID: [id number]
[2022-06-24] MEDS: LEVOTHYROXINE SOD 0.1 MG TAB PO SCH (06:28)
[2022-06-24] MEDS: INSULIN -REGULAR HUMAN 50 UNIT/0.5 ML ML SQ SCH ×4 (07:30→20:00)
[2022-06-24] MEDS: lisinopriL 10 MG TAB PO SCH ×2 (08:00→19:38)
[2022-06-24] MEDS: FUROSEMIDE 20 MG TABLET PO SCH (08:00)
[2022-06-24] MEDS: glipiZIDE 5 MG TAB PO SCH ×2 (08:23→17:18)
[2022-06-24] MEDS: TRAMADOL HCL 50 MG TAB PO PRN ×3 (08:24→19:41)
[2022-06-24] MEDS: APIXABAN 2.5 MG TABLET PO SCH ×2 (08:25→19:38)
[2022-06-24] MEDS: GABAPENTIN 400 MG CAP PO SCH ×2 (08:25→19:37)
[2022-06-24] MEDS: SODIUM CHLORIDE 1 GM TAB PO SCH (08:25)
[2022-06-24] MEDS: ASPIRIN EC 81 MG TAB PO SCH (08:26)
[2022-06-24] MEDS: CALCITROL 0.25 MCG CAP PO SCH (08:26)
[2022-06-24] MEDS: CIPROFLOXACIN HCL 500 MG TAB PO SCH ×2 (08:26→19:37)
[2022-06-24] MEDS: FE SULF/FA/VIT B COMP & C TAB PO SCH (08:26)
[2022-06-24] MEDS: FERROUS SULFATE 325 MG TAB PO SCH (08:26)
[2022-06-24] MEDS: allopurinoL 100 MG TAB PO SCH (08:26)
[2022-06-24] MEDS: VITAMIN D 1000 UNIT TAB PO SCH (08:26)
[2022-06-24] MEDS: LIDOCAINE 4% PATCH TOP SCH (09:25)
[2022-06-24] MEDS: GLUCERNA SHAKE 237 ML CAN PO SCH ×2 (09:26→19:39)
[2022-06-24] MEDS: NYSTATIN PWDR 100000 UNIT/GM TOP SCH ×2 (09:29→19:39)
[2022-06-24] MEDS: DOCUSATE NA/SENNA CONC 1 TAB PO PRN (19:37)
[2022-06-24] MEDS: ATORVASTATIN 40 MG TAB PO SCH (19:38)
--- NOTE | 2022-06-25 01:42 | PN ---
Date of Progress Note: 06/24/2022 Time Of Service: 1 p.m. Subjective: Ms. Hernandez is resting in her room. She did have a visit yesterday with the surgeons in [facility] and is planning to have surgery on Wednesday. She did have her sling adjusted and has no new com plaints. Review of Systems: As noted, the right arm is in a sling where there is a fracture at the elbow. She otherwise, has horace e myalgias and arthralgias there. Otherwise, no rash. No headache. No psychiatric complaints. No gastrointestinal or genitourinary complaints. No dermatologic complaints. Laboratory Studies: Blood sugars ranged from 112 to 132. X-ray/imaging: No new x-ray or imaging. Medications: Her medications have been reviewed and remain unchanged. Current Functional Status: Today she did eok-xw-zdqgs transfers independently and performed rolling activities in bed independently and wheelchair transfer independently. She did ambulate 54 feet with contact guard assistance using a quad cane and up and down 12 steps with contact guard assistance us ing left-sided hand rails. Occupational therapy demonstrated she did have impaired dynamic standing balance because of pain in the right elbow. She was dependent to don and doff shirt, requiring help with the buttoning. With her speech, she did use sustained attention during structured tasks for 30 minutes with moderate assistance. She recalled 1 of 3 words with 3 recall and then 3 of 3 words with cued recall after 1 minute. Progress Towards Rehabilitation Goals: She is making better progress today, but still requires more therapy including both physical and occupational along with speech therapy to become independent with upper and lower body dressing, transferring, toileting, and performing cognitive functioning indepen dently. Assessment: Ms. Hernandez is an 82-year-old patient admitted to the inpatient rehabilitation unit with t oxic metabolic encephalopathy and she has improved significantly. She has a distal humeral fracture requiring surgical intervention. That surgery will be performed on Wednesday in [place]. She has comor bid diabetes, diabetic neuropathy, hypothyroidism, malnutrition, dyslipidemia, hypertension, chronic kidney disease, and constipation. Plan: 1.Continue with physical, occupational, and speech therapy until discharge, which will be on . 2.Continue with gabapentin, Prinivil, Lasix, Ultram, Glucotrol, Synthroid, allopurinol, and Tylenol as needed. Comorbids That Continue To Impact Rehabilitation: The right arm is in a sling because of distal domenic ral fracture and again she is still working through that and required significant assistance for uppe r and lower body dressing and anything requiring use of the right arm, but she is now going ahead to [place] for surgery on Wednesday. JOANN Voice ID: [id number] Report ID: [id number]
[2022-06-25 04:18] LABS: Absolute Lymphocytes (CBC) 1.5 K/uL (0.7-4.9); Lymphocytes % 19.1 % (15.3-44.8); MCV 91.9 fL (80-100); MPV 8.4 fL (7.6-11.3); RBC Red Blood Cell Count 3.05 M/uL (3.86-4.86)
[2022-06-25 04:37] LABS: Albumin 2.7 g/dL (3.4-5.0); Potassium 4.7 mEq/L (3.5-5.1); Prealbumin 14.1 mg/dL (20-40)
[2022-06-25] MEDS: LEVOTHYROXINE SOD 0.1 MG TAB PO SCH (07:16)
[2022-06-25] MEDS: glipiZIDE 5 MG TAB PO SCH (07:17)
[2022-06-25] MEDS: INSULIN -REGULAR HUMAN 50 UNIT/0.5 ML ML SQ SCH (07:17)
[2022-06-25] MEDS: NYSTATIN PWDR 100000 UNIT/GM TOP SCH (08:00)
[2022-06-25] MEDS: FUROSEMIDE 20 MG TABLET PO SCH (08:00)
[2022-06-25] MEDS: GLUCERNA SHAKE 237 ML CAN PO SCH (08:00)
[2022-06-25] MEDS: lisinopriL 10 MG TAB PO SCH (08:00)
[2022-06-25] MEDS: LIDOCAINE 4% PATCH TOP SCH (08:38)
[2022-06-25] MEDS: FE SULF/FA/VIT B COMP & C TAB PO SCH (08:39)
[2022-06-25] MEDS: allopurinoL 100 MG TAB PO SCH (08:39)
[2022-06-25] MEDS: APIXABAN 2.5 MG TABLET PO SCH (08:39)
[2022-06-25] MEDS: GABAPENTIN 400 MG CAP PO SCH (08:39)
[2022-06-25] MEDS: VITAMIN D 1000 UNIT TAB PO SCH (08:39)
[2022-06-25] MEDS: CIPROFLOXACIN HCL 500 MG TAB PO SCH (08:39)
[2022-06-25] MEDS: FERROUS SULFATE 325 MG TAB PO SCH (08:40)
[2022-06-25] MEDS: ASPIRIN EC 81 MG TAB PO SCH (08:40)
[2022-06-25] MEDS: SODIUM CHLORIDE 1 GM TAB PO SCH (08:40)
[2022-06-25 08:42] VITALS: BP 102/44
[2022-06-25] MEDS: ACETAMINOPHEN 500 MG TAB PO PRN (08:47)
[2022-06-25 09:22] VITALS: TEMP 97.4
[2022-06-25] MEDS ORDERED: glipiZIDE 5 MG TAB PO SCH (16:30)
== END 2022-06-25 10:00 | disposition home or self-care (01) | DRG 92 ==
LOC: 5TH 06-17 09:50
PROVIDERS: ADMIT Psychiatry & Neurology Neurology with Special Qualifications in Child Neurology; ATTEND Psychiatry & Neurology Neurology with Special Qualifications in Child Neurology
DX: G92.8 Other toxic encephalopathy (principal); E46 Unspecified protein-calorie malnutrition; E87.1 Hypo-osmolality and hyponatremia; M19.90 Unspecified osteoarthritis, unspecified site; E11.22 Type 2 diabetes mellitus with diabetic chronic kidney disease; I12.9 Hypertensive chronic kidney disease with stage 1 through stage 4 chronic kidney disease, or unspecified chronic kidney disease; N18.9 Chronic kidney disease, unspecified; E11.42 Type 2 diabetes mellitus with diabetic polyneuropathy; E03.9 Hypothyroidism, unspecified; D64.9 Anemia, unspecified; I51.7 Cardiomegaly; K59.00 Constipation, unspecified; E78.5 Hyperlipidemia, unspecified; E87.6 Hypokalemia; Z68.33 Body mass index [BMI] 33.0-33.9, adult; S42.411D Displaced simple supracondylar fracture without intercondylar fracture of right humerus, subsequent encounter for fracture with routine healing
CPT/HCPCS: 36415; 80048; 81001; 82040; 82947; 83735; 84134; 85025; 87077; 87086; 87088; 87186; 92523; 94010; 97110; 97116; 97129; 97161; 97165; 97530; J2001; J7030